=== PATIENT | female | born 1960 | race Caucasian/White ===

== ENCOUNTER → 2017-08-07 | Outpatient (CLI) | payer MEDICARE, BC ==
--- NOTE | 2017-08-08 11:07 | MM ---
Reason for exam: screening (asymptomatic). Last mammogram was performed 1 year and 5 months ago. History: Patient is postmenopausal and is nulliparous. Family history of breast cancer in grandmother. Physical Findings: A clinical breast exam by your physician is recommended on an annual basis and results should be correlated with mammographic findings. MG 3D Screening Mammo W/Cad Bilateral CC and MLO view(s) were taken. Prior study comparison: March 18, 2016, bilateral MG screening mammo w CAD. January 09, 2015, mammogram, performed at [place]. The breast tissue is extremely dense which could obscure a lesion on mammography. Benign calcifications in the right breast. No significant changes when compared with prior studies. ASSESSMENT: Benign, BI-RAD 2 RECOMMENDATION: Routine screening mammogram of both breasts in 1 year.
== END | disposition home or self-care (01) ==
LOC: RADMAMWWP 11:40
PROVIDERS: ATTEND Family Medicine
DX: Z12.31 Encounter for screening mammogram for malignant neoplasm of breast (principal)
CPT/HCPCS: 77063; G0202

== ENCOUNTER → 2018-11-20 | Outpatient (CLI) | payer MEDICARE, BC ==
[2018-11-20 10:23] VITALS: BP 118/63; PULSE 68; RESP 18; TEMP 97.8; BMI 28.3
--- NOTE | 2018-11-20 10:26 | P.GSHP ---
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 She is mentally approximately 9 years old. She had a mammogram performed in 2017 which was felt to be benign but comes today for breast examination. She denies any masses in her breast. She denies any pain in her breast. She denies any nipple discharge or skin changes. The patient has not had any trauma or infection of the breast. Famliy History: mother: breast cancer (age 76) maternal grandmother: breast cancer (age 85) maternal grandfather: lung cancer Hormonal History: menarche: 9 : none menopause: 49 BCP: none hormones: none Past surgical history: 1. Tubal ligation Past Medical History: none Social History: smoke: none alcohol: none drugs: none - Constitutional Constitutional: Denies chills, Denies fever - EENT Eyes: denies blurred vision, denies pain Ears: deny: decreased hearing, tinnitus Ears, nose, mouth and throat: Denies headache, Denies sore throat - Breasts Breasts: bilateral: as per HPI - Cardiovascular Cardiovascular: Denies chest pain, Denies shortness of breath - Respiratory Respiratory: Denies cough, Denies 7 - Gastrointestinal Gastrointestinal: Denies abdominal pain, Denies diarrhea, Denies nausea, Denies vomiting - Genitourinary (Female) Genitourinary: Denies dysuria, Denies hematuria - Menstruation Menstruation: Reports postmenopausal - Musculoskeletal Musculoskeletal: Denies myalgias - Integumentary Integumentary: Denies pruritus, Denies rash - Neurological Comment: mental retardation age 9 Neurological: Denies numbness, Denies weakness - Psychiatric Psychiatric: Denies anxiety, Denies depression - Endocrine Endocrine: Denies fatigue, Denies weight change - Hematologic/Lymphatic Comment: none - Allergic/Immunologic Comment: none Past Medical History Past Medical History: Hyperlipidemia History of Any Multi-Drug Resistant Organisms: None Reported Past Surgical History: Tubal Ligation Past Psychological History: No Psychological Hx Reported Smoking Status: Never smoker Past Alcohol Use History: None Reported Past Drug Use History: None Reported Medications and Allergies Home Medications Medication Instructions Recorded Confirmed Type Amoxicillin/Potassium Clav 1 tab PO Q12HR #20 tab 10/06/16 Rx [Augmentin 875-125 Tablet] Sertraline [Zoloft] 25 mg PO DAILY 10/06/16 10/06/16 History Allergies Allergy/AdvReac Type Severity Reaction Status Date / Time No Known Allergies Allergy Verified 10/06/16 12:38 Surgical - Exam - General mental retardation well developed, well nourished, no distress - Eyes normal ocular movement - ENT no hearing loss, no congestion - Neck no masses, trachea midline - Respiratory normal respiratory effort, clear to auscultation - Cardiovascular Rhythm: regular Heart Sounds: normal: S1, S2 - Abdomen Abdomen: soft, non tender, no guarding, no rigid, no rebound - Integumentary normal turgor - Neurologic no disoriented, no combative - Musculoskeletal normal gait - Psychiatric oriented to time, oriented to person, oriented to place, speech is normal, memory intact breast exam: right breast: Multi-positional exam no dominant masses or nodules of concern Right axilla: No adenopathy of concern Left breast: Multi-positional exam of dominant masses or nodules of concern slight increased nodularity upper outer quadrant consistent with fibrocystic changes Left axilla: No adenopathy of concern Results Patient due for bilateral mammogram this is scheduled 12/17/2018 Assessment and Plan Assessment: Impression: 1. Fibrocystic breast changes 2. Patient due for bilateral mammogram 3. Mental retardation Plan: Plan: 1. Bilateral mammogram to follow up with results after the mammogram 2. Medical management of medical conditions CC: Dr. Cruz
== END | disposition home or self-care (01) ==
LOC: WWCWWP 09:50
PROVIDERS: ATTEND Surgery
DX: Z53.9 Procedure and treatment not carried out, unspecified reason (principal)

== ENCOUNTER → 2018-12-17 | Outpatient (CLI) | payer MEDICARE, BC ==
--- NOTE | 2018-12-18 10:35 | MM ---
Reason for exam: screening (asymptomatic). Last mammogram was performed 1 year and 4 months ago. History: Patient is postmenopausal and is nulliparous. Family history of breast cancer in grandmother at age 77 and breast cancer in mother at age 77. Physical Findings: A clinical breast exam by your physician is recommended on an annual basis and results should be correlated with mammographic findings. MG 3D Screening Mammo W/Cad Bilateral CC and MLO view(s) were taken. XCCL view(s) were taken of the right breast. Prior study comparison: August 07, 2017, bilateral MG 3d screening mammo w/cad. March 18, 2016, bilateral MG screening mammo w CAD. The breast tissue is heterogeneously dense. This may lower the sensitivity of mammography. There are benign appearing round calcifications in the right breast. There is no discrete abnormality. ASSESSMENT: Benign, BI-RAD 2 RECOMMENDATION: Routine screening mammogram of both breasts in 1 year.
== END | disposition home or self-care (01) ==
LOC: RADMAMWWP 13:10 → EEVIPCON 13:20
PROVIDERS: ATTEND Surgery
DX: Z12.31 Encounter for screening mammogram for malignant neoplasm of breast (principal)
CPT/HCPCS: 77063; 77067

== ENCOUNTER → 2018-12-24 | Outpatient (CLI) | payer MEDICARE, BC ==
[2018-12-24 11:25] VITALS: BP 115/68; PULSE 63; RESP 18; TEMP 96.7; BMI 28.3
--- NOTE | 2018-12-24 11:32 | P.PN ---
Progress Note - Text Progress Note Date: 12/24/18 Wanda is a 58-year-old white female who was seen on 1419 for breast evaluation. At that appointment she was noted to have no masses in either breast and no adenopathy of concern. She was recommended to undergo bilateral mammogram which was performed on 130 119. Results of this were benign BIRADS 2. The patient is present today for explanation. She had undergone encephalitis as a child and is mentally approximately 9 years of age. She is here with her mother. I have gone over the results of the mammogram with both of them. They understand and she will have a repeat bilateral mammogram in 1 year with physician exam at that time. She notices anything of concern sooner I 'll see her sooner. Cc: Dr. Amor Alcala
== END ==
LOC: WWCWWP 10:31
PROVIDERS: ATTEND Surgery
DX: Z53.9 Procedure and treatment not carried out, unspecified reason (principal)

== ENCOUNTER 2018-12-31 12:56 | Emergency (ER) | payer MEDICARE, BC ==
[2018-12-31 14:09] VITALS: BP 112/85; PULSE 78; RESP 18; TEMP 98.4
[2018-12-31] MEDS ORDERED: DIPH,PERTUS(ACELL)TETVAC-LF 0.5 ML VIAL IM ONE (14:12)
--- NOTE | 2018-12-31 14:43 | XR ---
EXAMINATION TYPE: XR hand complete LT DATE OF EXAM: 12/31/2018 COMPARISON: None HISTORY: Third finger caught in car door TECHNIQUE: 3 views left hand FINDINGS: No acute displaced fractures are evident. Joint spaces are preserved. There is soft tissue injury and swelling over the third digit. IMPRESSION: 1. Soft tissue swelling left middle finger. 2. No acute osseous abnormality. 3. Follow-up exams can be performed 7-10 days from acute trauma for continued pain.
--- NOTE | 2018-12-31 14:59 | ED ---
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 Patient is calm a by her mother who states that patient slammed her left middle finger in the car door about 20 minutes prior to arrival to the emergency department today. There is no gross deformity, they do admit to swelling. Patient denies any numbness tingling or loss sensation. Patient is able to range at the left digit, patient states this increases pain. Patient denies any wrist or elbow pain he denies any falls. Remaining review of systems negative, patient denies any recent fever, chills, shortness of breath, chest pain, back pain, abdominal pain, nausea or vomiting, numbness or tingling, dysuria or hematuria, constipation or diarrhea, headaches or visual changes, or any other complaints. Upon arrival patient's vital signs within normal limits. - Related Data Home Medications Medication Instructions Recorded Confirmed No Known Home Medications 12/31/18 12/31/18 Allergies Allergy/AdvReac Type Severity Reaction Status Date / Time No Known Allergies Allergy Verified 12/31/18 14:09 Review of Systems ROS Statement: Those systems with pertinent positive or pertinent negative responses have been documented in the HPI. ROS Other: All systems not noted in ROS Statement are negative. Past Medical History Past Medical History: Hyperlipidemia Additional Past Medical History / Comment(s): had encephalitis at 5yrs old. mentally age 9 History of Any Multi-Drug Resistant Organisms: None Reported Past Surgical History: Tubal Ligation Past Psychological History: No Psychological Hx Reported Smoking Status: Never smoker Past Alcohol Use History: None Reported Past Drug Use History: None Reported General Exam - General Exam Comments Initial Comments: General: The patient is awake and alert, in no distress, and does not appear acutely ill. Eye: +3 mm pupils are equal, round and reactive to light, extra-ocular movements are intact. No nystagmus. There is normal conjunctiva bilaterally. No signs of icterus. Cardiovascular: There is a regular rate and rhythm. No murmur, rub or gallop is appreciated. Respiratory: Lungs are clear to auscultation, respirations are non-labored, breath sounds are equal. No wheezes, stridor, rales, or rhonchi. Gastrointestinal: Soft, non-distended, non-tender abdomen without masses or organomegaly noted. There is no rebound or guarding present. Musculoskeletal: Upon inspection of the left middle finger there is contusion, soft tissue swelling. No gross dislocation or deformity. There is small superficial laceration only involving the dermis no deeper layers or injury < 1cm in length v shaped. Each joint including MTP DIP and PIP joints were isolated and tested for both motion and strength, patient has full range of motion equal comparison with the other digits of the left hand with 5 out of 5 strength. Sensation intact of the digit from tip of finger, and up through elbow.. Radial pulses equal bilaterally 2+. Capillary refill less than 2 seconds. Neurological: A&O x 3. CN II-XII intact, There are no obvious motor or sensory deficits. Coordination appears grossly intact. Speech is normal. Skin: Skin is warm and dry and no rashes or lesions are noted. Psychiatric: Cooperative, appropriate mood & affect, normal judgment. Limitations: no limitations Course Vital Signs 12/31/18 14:07 Temperature 98.4 F Pulse Rate 78 Respiratory 18 Rate Blood Pressure 112/85 O2 Sat by Pulse 97 Oximetry Medical Decision Making - Medical Decision Making Well-appearing 58-year-old female presenting for left middle finger injury. Superficial laceration, does not require repair with suture. edges approximated. X-ray negative for acute fracture, this was reviewed by myself as well as attending provider Dr. Urbina. No dislocation. Patient is able to fully range at the abdomen TP, DIP and PIP joints without difficulty, there is no evidence of weakness on examination. Patient neurovascularly intact. Superficial laceration was cleansed with iodine solution, sterile bandage applied as well as a finger splint. Patient is to follow-up with primary care provider. I did recommend orthopedic follow-up if patient had any limitations or weakness noted of the left middle finger. I did discuss the case with attending provider Dr. Urbina. Who is agreeable with plan and discharge. Disposition Clinical Impression: Contusion of left middle finger Disposition: HOME SELF-CARE Condition: Good Instructions (If sedation given, give patient instructions): Contusion in Adults (ED) Additional Instructions: Please use medication as discussed. Please follow-up with family doctor in the next 2 days, please see orthopedic surgery in there are any limitations in range of motion. Please return to emergency room if the symptoms increase or worsen or for any other concerns. Is patient prescribed a controlled substance at d/c from ED?: No Referrals: Amor Cruz DO [Primary Care Provider] - 1-2 days Soy Pace DO [Doctor of Osteopathic Medicine] - 1-2 days Time of Disposition: 14:59
== END 2018-12-31 15:16 | disposition home or self-care (01) ==
LOC: EC 12:56
DX: S60.032A Contusion of left middle finger without damage to nail, initial encounter (principal); Z23 Encounter for immunization; W23.0XXA Caught, crushed, jammed, or pinched between moving objects, initial encounter
CPT/HCPCS: 90471; 90715; 99283

== ENCOUNTER 2019-03-11 07:56 | Outpatient (CLI) | payer MEDICARE, BC | END 2019-03-11 09:32 | disposition home or self-care (01) | LOC: LABWHC1 07:56 | PROVIDERS: ATTEND Family Medicine | DX: Z53.9 Procedure and treatment not carried out, unspecified reason (principal) ==